=== PATIENT | female | born 1955 | race Caucasian/White ===

== ENCOUNTER 2016-10-21 02:35 | Emergency (ER) | payer OTHER ==
[~2016-10-21] VITALS: Ht 157.5 cm; Wt 68.2 kg
[~2016-10-21 02:35] MED LIST: AUGMENTIN500 MG PO; AUGMENTIN875 MG PO; BUSPAR10 MG PO; BUSPAR5 MG PO; CLEOCIN300 MG PO; CLINDAMYCIN HC300 MG PO; HYDROCODON-ACE1 EAC7 PO; KEPPRA500 MG PO; LIPITOR20 MG PO; MECLIZINE HCL25 MG PO; MONTELUKAST SOD10 MG PO; NAPROSYN500 MG PO; PREDNISONE10 MG PO; PRILOSEC40 MG PO; PROAIR HFA8.5 GM IH; PROTONIX PO; Phenergan PO; TRAZODONE HCL50 MG PO; ULTRACET1 TABLET PO; XANAX0.25 MG PO; XIFAXAN550 MG PO; XYZAL5 MG PO; ZOLOFT100 MG PO; ZOLOFT50 MG PO
[2016-10-21 04:54] VITALS: BP 132/95
== END 2016-10-21 04:56 | disposition home or self-care (01) ==
LOC: EME 02:35
DX: S00.12XA Contusion of left eyelid and periocular area, initial encounter (principal); Y04.0XXA Assault by unarmed brawl or fight, initial encounter; Y07.59 Other non-family member, perpetrator of maltreatment and neglect
CPT/HCPCS: 70480; 99281; 99284